=== PATIENT | male | born 1985 | race Caucasian/White ===

== ENCOUNTER 2017-12-04 10:06 | Emergency (ER) | payer MEDICAID ==
[2017-12-04] MEDS: IBUPROFEN 600 MG TAB PO (12:26)
== END 2017-12-04 13:09 | disposition home or self-care (01) ==
LOC: FTE 13:09
DX: S69.91XA Unspecified injury of right wrist, hand and finger(s), initial encounter (principal); W20.8XXA Other cause of strike by thrown, projected or falling object, initial encounter; Y92.9 Unspecified place or not applicable
CPT/HCPCS: 29130; 73140; 99283-25

== ENCOUNTER 2018-02-21 15:41 | Emergency (ER) | payer MEDICAID | END 2018-02-21 16:00 | disposition home or self-care (01) | LOC: E/R 16:00 → FTE 15:41 | DX: R21 Rash and other nonspecific skin eruption (principal) | CPT/HCPCS: 99283; Z7502 ==

== ENCOUNTER 2018-02-25 19:27 | Emergency (ER) | payer MEDICAID | END 2018-02-25 21:12 | disposition home or self-care (01) | LOC: E/R 21:12 | DX: R21 Rash and other nonspecific skin eruption (principal) | CPT/HCPCS: 99283 ==

== ENCOUNTER 2018-03-03 21:35 | Emergency (ER) | payer MEDICAID, OTHER ==
[2018-03-04] MEDS: DIPHENHYDRAMINE 50 MG INJ IM (00:33)
[2018-03-04] MEDS: FAMOTIDINE 20 MG TAB PO (00:34)
[2018-03-04] MEDS: predniSONE 20 MG TAB PO (00:34)
== END 2018-03-04 02:30 | disposition home or self-care (01) ==
LOC: FTE 21:35
DX: R21 Rash and other nonspecific skin eruption (principal)
CPT/HCPCS: 96372; 99284-25; J1200

== ENCOUNTER 2019-01-19 17:11 | Emergency (ER) | payer MEDICAID ==
[2019-01-19] MEDS: IBUPROFEN 600 MG TAB PO (19:17)
[2019-01-19] MEDS: ACETAMINOPHEN 325 MG TAB PO (19:17)
== END 2019-01-19 19:21 | disposition home or self-care (01) ==
LOC: FTE 19:21
DX: J02.9 Acute pharyngitis, unspecified (principal)
CPT/HCPCS: 99283; Z7502